=== PATIENT | female | born 2000 | race Asian ===

== ENCOUNTER 2020-06-30 22:44 | Emergency (ER) | payer SELFPAY ==
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
[2020-06-30] MEDS ORDERED: LIDOCAINE 1%/EPINEPHRINE INJ 20 ML VIAL INJ ONE (23:44)
[2020-07-01 01:46] LABS: ABSOLUTE BASOPHILS # (AUTO) 0.1 10^3/uL (0.0-0.2); ABSOLUTE LYMPHOCYTES (AUTO) 1.8 10^3/uL (0.5-4.7); ABSOLUTE MONOCYTES (AUTO) 0.4 10^3/uL (0.1-1.4); ABSOLUTE NEUT (AUTO) 8.1 10^3/uL (1.7-8.2); BASOPHILS % (AUTO) 0.5 % (0-2); EOSINOPHILS % (AUTO) 0.1 % (0-6); HEMOGLOBIN 11.8 g/dL (12.0-15.5); LYMPHOCYTES % (AUTO) 17.3 % (13-45); MEAN CORPUSCULAR HGB CONC 34.7 g/dL (32.0-36.0); MEAN CORPUSCULAR VOLUME 84 fl (80-97); MONOCYTES % (AUTO) 4.2 % (3-13); PLATELET COUNT 347 10^3/uL (150-450); RED BLOOD COUNT 4.06 10^6/uL (3.72-5.28); RED CELL DISTRIBUTION WIDTH 14.2 % (11.5-14.0); SEGMENTED NEUTROPHILS % (AUTO) 77.9 % (42-78); TOTAL CELLS COUNTED % (AUTO) 100 %; WHITE BLOOD COUNT 10.4 10^3/uL (4.0-10.5)
[2020-07-01 02:02] LABS: ALBUMIN 3.9 g/dL (3.5-5.0); ALKALINE PHOSPHATASE 93 U/L (38-126); ASPARTATE AMINO TRANSFERASE 34 U/L (14-36); BILIRUBIN,TOTAL 0.2 mg/dL (0.2-1.3); BLOOD UREA NITROGEN 11 mg/dL (7-20); CHLORIDE 109 mmol/L (98-107); GLUCOSE 103 mg/dL (75-110); POTASSIUM 4.1 mmol/L (3.6-5.0); TOTAL PROTEIN 6.9 g/dL (6.3-8.2)
[2020-07-01 02:03] LABS: ACETAMINOPHEN < 10 ug/mL (10-30); ALCOHOL < 10 mg/dL (NONE DETECTED); SALICYLATE < 1.0 mg/dL (2.0-20.0)
[2020-07-01 02:06] LABS: APPEARANCE,URINE CLEAR; BILIRUBIN,URINE NEGATIVE (NEGATIVE); COLOR,URINE YELLOW; GLUCOSE, URINE NEGATIVE (NEGATIVE); KETONES,URINE NEGATIVE (NEGATIVE); LEUKOCYTE ESTERASE,URINE NEGATIVE (NEGATIVE); NITRITE,URINE NEGATIVE (NEGATIVE); PROTEIN,URINE 100 mg/dL (NEGATIVE); UROBILINOGEN,URINE NEGATIVE mg/dL (<2.0)
[2020-07-01 02:07] LABS: ANION GAP 5 (5-19); CARBON DIOXIDE 23 mmol/L (22-30)
[2020-07-01 02:15] LABS: URINE AMPHETAMINES SCREEN NEGATIVE; URINE BARBITURATES SCREEN NEGATIVE; URINE BENZODIAZEPINES SCREEN NEGATIVE; URINE COCAINE SCREEN NEGATIVE; URINE MARIJUANA (THC) SCREEN NEGATIVE; URINE METHADONE SCREEN NEGATIVE; URINE PHENCYCLIDINE SCREEN NEGATIVE
[2020-07-01] MEDS ORDERED: CEPHALEXIN 500 MG CAPSULE PO ONE ×2 (02:40→06:45)
--- NOTE | 2020-07-01 07:23 | EKG REPORT ---
SEVERITY:- NORMAL ECG - SINUS RHYTHM : Confirmed by: Ulises Gonzalez MD 01-Jul-2020 07:22:45
[2020-07-01] MEDS ORDERED: ACETAMINOPHEN 325 MG TABLET PO ONE (09:10)
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
--- NOTE | 2020-07-01 19:00 | ER Document Report ---
Doctor's Note Notes: 07/01/20 18:58 Patient's vital signs and previous labs, diagnostic imaging reviewed. Reviewed mental health notes, nurses notes and previous vital signs. Patient is in no distress at this time denies any SI or HI. No hallucinations. States that her stay has been extended due to the previous provider asking her about suicide. General: alert, oriented, dressing over right wrist Heart: RRR, no murmurs rubs or gallops Lungs: CTABL Psych: Normal affect A&P: Patient is medically cleared. Pending mental health recommendations.
[2020-07-02] MEDS: CEPHALEXIN 500 MG CAPSULE PO SCH ×2 (01:15→09:49)
[2020-07-02] MEDS ORDERED: ACETAMINOPHEN 325 MG TABLET ONE (09:42)
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
[2020-07-02 13:47] VITALS: BP 115/70
--- NOTE | 2020-07-02 14:18 | ER Document Report ---
Doctor's Note Notes: 07/02/20 14:16 Progress note: Reevaluation of the patient at this time. She is resting comfortably in the room. She has no medical complaints that are acute. She states she has chronic neck pain and that is still ailing her but nothing new. She reports that the laceration to the right wrist is doing well without compli cation. No swelling redness or drainage. She reported that she was up-to-date on her tetanus shot. Transport, 's office is here to take her to [place] where she has been accepted for psychiatric care. She is stable and appropriate for transfer at this time. General: Well-appearing in no acute distress. Cardio: Regular rate and rhythm Lungs: Clear to auscultation bilaterally Psych: Flat affect
== END 2020-07-02 14:20 ==
LOC: ER 22:44
DX: S61.511A Laceration without foreign body of right wrist, initial encounter (principal); W25.XXXA Contact with sharp glass, initial encounter; Y93.89 Activity, other specified; Y92.009 Unspecified place in unspecified non-institutional (private) residence as the place of occurrence of the external cause; R45.851 Suicidal ideations; S40.022A Contusion of left upper arm, initial encounter; S40.021A Contusion of right upper arm, initial encounter; S00.83XA Contusion of other part of head, initial encounter; Y09 Assault by unspecified means; Y93.02 Activity, running; R53.1 Weakness; M54.2 Cervicalgia; G89.29 Other chronic pain; Z63.0 Problems in relationship with spouse or partner
CPT/HCPCS: 93005; 99285; 36415; 80307 ×4; 84703; 85025; 80053; 81001; 73110; 93010; 12002; J3490